=== PATIENT | female | born 1995 | race Caucasian/White ===

== ENCOUNTER 2016-11-28 09:08 | Emergency (ER) | payer OTHER ==
[~2016-11-28 09:08] MED LIST: ACET50TA PO; IBUP80TA PO; NORCOTAB PO; PRENTAB7 PO
[2016-11-28 09:54] LABS: CONTROL LINE UCG INT CTR LINE PRESENT
[2016-11-28] MEDS ORDERED: PHENAZOPYRIDINE 100 MG TAB As Ordered ONE (10:09)
[2016-11-28] MEDS ORDERED: CIPROFLOXACIN 500 MG TAB As Ordered ONE (10:09)
--- NOTE | 2016-11-28 10:15 | EDDOCDS ---
Nurse's Notes [facility] Name: Marjan Hassan Age: 21 yrs Sex: Female : 1995 Arrival Date: 11/28/2016 Time: 09:08 Bed Triage 1 Private MD: Unknown, Family Dr Diagnosis: Urinary tract infection, site not specified Presentation: 11/28 09:18 Presenting complaint: Patient states: states that her emergency today is a UTI x 1 day. ml6 Adult Sepsis Screening: The patient does not have new or worsening altered mentation. Patient's respiratory rate is less than 22. Systolic blood pressure is greater than 100. Patient has a qSOFA score of 0- Negative Sepsis Screen. Suicide/Homicide risk assessment- the patient denies having any suicidal and/or homicidal ideations and does not present with any other emotional, behavioral or mental health complaints. Status: The patient is a dependent. Transition of care: patient was not received from another setting of care. 09:18 Acuity: MARCIE Level 4 ml6 09:18 Method Of Arrival: Walkin/Carried/Asstd ml6 Triage Assessment: 09:20 General: Appears in no apparent distress, Behavior is appropriate for age, cooperative. ml6 Pain: Denies pain. HIV screening NA for this visit Offered previously. Neurological: No deficits noted. Cardiovascular: No deficits noted. : Reports burning with urination since yesterday. 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 none - PMHx: none; - PSHx: facial reconstruction; ; Colonoscopy; - Social history: Smoking status: Patient states was never smoker of tobacco. No barriers to communication noted, Speaks appropriately for age. - : The pt / caregiver states he / she is not on anticoagulants. Home medication list is obtained from the patient. - Exposure Risk Screening:: None identified. Vital Signs: 09:10 BP 151 / 78; Pulse 78; Resp 18 S; Temp 97.5(O); Pulse Ox 97% on R/A; Weight 84.82 kg dd6 (R); Height 5 ft. 4 in. (162.56 cm) (R); 09:10 Body Mass Index 32.10 (84.82 kg, 162.56 cm) dd6 Vitals: 09:10 Log In Time: November 28, 2016 at 09:08. dd6 ED Course: 09:10 Patient visited by Maurice Collado PCA. dd6 09:10 Unknown, Family is Private Physician. dd6 09:10 Patient moved to Waiting dd6 09:11 Patient moved to Pre RCE dd6 09:19 Triage Initiated ml6 09:30 Estrada Steve PA is PHCP. mo1 09:30 Jose Antonio Carrillo MD is Attending Physician. mo1 09:30 Patient moved to Triage 1 kcs 09:35 Patient visited by Estrada Steve PA. mo1 09:36 Urine Culture Sent. kcs 09:36 UA Sent. kcs 10:06 Patient moved to PR / 25 kcs 10:06 Patient moved to Triage 1 kcs Administered Medications: 10:13 Drug: Ciprofloxacin 500 mg [ciprofloxacin 500 mg tablet (1 tabs)] Route: PO; kcs 10:13 Drug: Phenazopyridine 200 mg [phenazopyridine 100 mg tablet (2 tabs)] Route: PO; kcs Order Results: Lab Order: UA; SPEC'M 11/28/16 09:32 Test: APPEARANCE, URINE; Value: HAZY; Range: CLEAR; Status: F Test: COLOR, URINE; Value: YELLOW; Range: YELLOW; Status: F Test: PH,URINE; Value: 5.0; Range: 5.0-9.0; Units: UNITS; Status: F Test: SPECIFIC GRAVITY URINE AUTO; Value: 1.016; Range: 1.002-1.035; Status: F Test: PROTEIN, URINE AUTO; Value: NEGATIVE; Range: NEGATIVE; Units: mg/dL; Status: F Test: GLUCOSE, URINE (UA) AUTO; Value: NEGATIVE; Range: NEGATIVE; Units: mg/dL; Status: F Test: KETONE, URINE AUTO; Value: TRACE; Range: NEGATIVE; Abnormal: Above high normal; Units: mg/dL; Status: F Test: UROBILINOGEN, URINE AUTO; Value: 0.2; Range: 0.0-2.0; Units: mg/dL; Status: F Test: BILIRUBIN, URINE AUTO; Value: NEGATIVE; Range: NEGATIVE; Status: F Test: NITRITE, URINE AUTO; Value: NEGATIVE; Range: NEGATIVE; Status: F Test: LEUKOCYTE ESTERASE, URINE AUTO; Value: 3+; Range: NEGATIVE; Abnormal: Above high normal; Status: F Test: BLOOD, URINE BLOOD; Value: 1+; Range: NEGATIVE; Abnormal: Above high normal; Status: F Test: WBC, URINE AUTO; Value: TNTC; Range: 0-3; Abnormal: Above high normal; Units: /HPF; Status: F Test: RBC, URINE AUTO; Value: 21; Range: 0-3; Abnormal: Above high normal; Units: /HPF; Status: F Test: BACTERIA, URINE AUTO; Value: 2+; Range: NEGATIVE; Abnormal: Above high normal; Status: F Test: SQUAMOUS EPITHELIAL CELL UR AU; Value: 0; Range: 0-6; Units: /HPF; Status: F Test: HYALINE CAST, URINE AUTO; Value: 0; Range: 0-1; Units: /LPF; Status: F Lab Order: Urine Test-In Lab; SPEC'M 11/28/16 09:32 Test: URINE PREG TEST; Value: NEGATIVE; Range: NEGATIVE; Status: F Outcome: 09:58 Discharge ordered by Provider. mo1 10:14 Patient left the ED. [facility] Signatures: Kecia Woodson, RN RN Maurice Colin, JAGRUTI TURBINE OPERATOR dd6 Arjun Boyd RN RN ml6 Estrada Steve PA PA mo1 MTDD
--- NOTE | 2016-11-28 10:15 | EDDOCDS ---
Physician Documentation [facility] Name: Marjan Hassan Age: 21 yrs Sex: Female : 1995 Arrival Date: 11/28/2016 Time: 09:08 Bed Triage 1 Private MD: Unknown, Family Dr Disposition: 11/28/16 09:58 Discharged to Home/Self Care. Impression: Urinary tract infection, site not specified. - Condition is Stable. - Discharge Instructions: Urinary Tract Infection. - Prescriptions for Cipro 500 mg Oral Tablet - take 1 tablet by ORAL route every 12 hours; 14 tablet. Pyridium 200 mg Oral Tablet - take 1 tablet by ORAL route every 8 hours for 3 days; 9 tablet. - Medication Reconciliation, Local Pharmacy Hours form. - Follow up: Private Physician; When: Call to arrange an appointment; Reason: Recheck today's complaints, Continuance of care. - Problem is new. - Symptoms are unchanged. Historical: - Allergies: Septra; - Home Meds: 1. none - PMHx: none; - PSHx: facial reconstruction; ; Colonoscopy; - Social history: Smoking status: Patient states was never smoker of tobacco. No barriers to communication noted, Speaks appropriately for age. - : The pt / caregiver states he / she is not on anticoagulants. Home medication list is obtained from the patient. - Exposure Risk Screening:: None identified. 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 4 in. (162.56 cm) (R); 09:10 Body Mass Index 32.10 (84.82 kg, 162.56 cm) dd6 MDM: 09:23 UA Ordered. EDMS 09:24 Urine Culture Ordered. EDMS 09:46 Urine Test-In Lab Ordered. EDMS 09:57 UA Reviewed. mo1 09:57 Urine Test-In Lab Reviewed. mo1 09:58 Ciprofloxacin 500 mg PO once ordered. mo1 09:58 Phenazopyridine 200 mg PO once ordered. mo1 Administered Medications: 10:13 Drug: Ciprofloxacin 500 mg [ciprofloxacin 500 mg tablet (1 tabs)] Route: PO; kcs 10:13 Drug: Phenazopyridine 200 mg [phenazopyridine 100 mg tablet (2 tabs)] Route: PO; kcs Signatures: Dispatcher [employer] Kecia Espinosa RN RN Arjun López RN RN ml6 Estrada Steve PA PA mo1 MTDD
--- NOTE | 2016-11-30 11:15 | EDDOCDS ---
Nurse's Notes [facility] Name: Marjan Hassan Age: 21 yrs Sex: Female : 1995 Arrival Date: 11/28/2016 Time: 09:08 Bed Triage 1 Private MD: Unknown, Family Dr Diagnosis: Urinary tract infection, site not specified Presentation: 11/28 09:18 Presenting complaint: Patient states: states that her emergency today is a UTI x 1 day. ml6 Adult Sepsis Screening: The patient does not have new or worsening altered mentation. Patient's respiratory rate is less than 22. Systolic blood pressure is greater than 100. Patient has a qSOFA score of 0- Negative Sepsis Screen. Suicide/Homicide risk assessment- the patient denies having any suicidal and/or homicidal ideations and does not present with any other emotional, behavioral or mental health complaints. Status: The patient is a dependent. Transition of care: patient was not received from another setting of care. 09:18 Acuity: MARCIE Level 4 ml6 09:18 Method Of Arrival: Walkin/Carried/Asstd ml6 Triage Assessment: 09:20 General: Appears in no apparent distress, Behavior is appropriate for age, cooperative. ml6 Pain: Denies pain. HIV screening NA for this visit Offered previously. Neurological: No deficits noted. Cardiovascular: No deficits noted. : Reports burning with urination since yesterday. 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 none - PMHx: none; - PSHx: facial reconstruction; ; Colonoscopy; - Social history: Smoking status: Patient states was never smoker of tobacco. No barriers to communication noted, Speaks appropriately for age. - Family history: Not pertinent. - : The pt / caregiver states he / she is not on anticoagulants. Home medication list is obtained from the patient. - Exposure Risk Screening:: None identified. Screenin:13 Screening information is obtained from prior medical records. Fall risk: No risks kcs identified. Assistance ADL's: requires no assistance with activities of daily living. Abuse/DV Screen: The patient / caregiver reports he/she is: not in a situation that causes fear, pain or injury. Nutritional screening: No deficits noted. Advance Directives: Currently, there is no health care proxy. There is no living will. home support is adequate. Assessment: 10:13 Reassessment: Patient states symptoms have not improved. General: Appears comfortable, kcs well developed, well nourished, well groomed, Behavior is cooperative, pleasant. Pain: Location: with urination. Neurological: Level of Consciousness is awake, alert. Respiratory: Airway is patent Respiratory effort is even, unlabored, Respiratory pattern is regular, symmetrical. Derm: Skin is intact, is healthy with good turgor, Skin is dry, Skin is normal. Vital Signs: 09:10 BP 151 / 78; Pulse 78; Resp 18 S; Temp 97.5(O); Pulse Ox 97% on R/A; Weight 84.82 kg dd6 (R); Height 5 ft. 4 in. (162.56 cm) (R); 09:10 Body Mass Index 32.10 (84.82 kg, 162.56 cm) dd6 Vitals: 09:10 Log In Time: November 28, 2016 at 09:08. dd6 ED Course: 09:10 Patient visited by Maurice Collado PCA. dd6 09:10 Unknown, Family Dr is Private Physician. dd6 09:10 Patient moved to Waiting dd6 09:11 Patient moved to Pre RCE dd6 09:19 Triage Initiated ml6 09:30 Estrada Steve PA is PHCP. mo1 09:30 Jose Antonio Carrillo MD is Attending Physician. mo1 09:30 Patient moved to Triage 1 kcs 09:35 Patient visited by Estrada Steve PA. mo1 09:36 Urine Culture Sent. kcs 09:36 UA Sent. kcs 10:06 Patient moved to PR1 / 25 kcs 10:06 Patient moved to Triage 1 kcs 10:13 The patient / caregiver is instructed regarding the plan of care and ED course. kcs 10:13 No IV's were initiated during this patient's visit. No procedures done that require kcs assistance. 10:24 [facility] Payment Agreement was scanned into [employer] and attached to record. mm15 14:44 T-Sheet-- Draft Copy was scanned into [employer] and attached to record. gb Administered Medications: 10:13 Drug: Ciprofloxacin 500 mg [ciprofloxacin 500 mg tablet (1 tabs)] Route: PO; kcs 10:13 Drug: Phenazopyridine 200 mg [phenazopyridine 100 mg tablet (2 tabs)] Route: PO; kcs Order Results: Lab Order: UA; SPEC'M 11/28/16 09:32 Test: APPEARANCE, URINE; Value: HAZY; Range: CLEAR; Status: F Test: COLOR, URINE; Value: YELLOW; Range: YELLOW; Status: F Test: PH,URINE; Value: 5.0; Range: 5.0-9.0; Units: UNITS; Status: F Test: SPECIFIC GRAVITY URINE AUTO; Value: 1.016; Range: 1.002-1.035; Status: F Test: PROTEIN, URINE AUTO; Value: NEGATIVE; Range: NEGATIVE; Units: mg/dL; Status: F Test: GLUCOSE, URINE (UA) AUTO; Value: NEGATIVE; Range: NEGATIVE; Units: mg/dL; Status: F Test: KETONE, URINE AUTO; Value: TRACE; Range: NEGATIVE; Abnormal: Above high normal; Units: mg/dL; Status: F Test: UROBILINOGEN, URINE AUTO; Value: 0.2; Range: 0.0-2.0; Units: mg/dL; Status: F Test: BILIRUBIN, URINE AUTO; Value: NEGATIVE; Range: NEGATIVE; Status: F Test: NITRITE, URINE AUTO; Value: NEGATIVE; Range: NEGATIVE; Status: F Test: LEUKOCYTE ESTERASE, URINE AUTO; Value: 3+; Range: NEGATIVE; Abnormal: Above high normal; Status: F Test: BLOOD, URINE BLOOD; Value: 1+; Range: NEGATIVE; Abnormal: Above high normal; Status: F Test: WBC, URINE AUTO; Value: TNTC; Range: 0-3; Abnormal: Above high normal; Units: /HPF; Status: F Test: RBC, URINE AUTO; Value: 21; Range: 0-3; Abnormal: Above high normal; Units: /HPF; Status: F Test: BACTERIA, URINE AUTO; Value: 2+; Range: NEGATIVE; Abnormal: Above high normal; Status: F Test: SQUAMOUS EPITHELIAL CELL UR AU; Value: 0; Range: 0-6; Units: /HPF; Status: F Test: HYALINE CAST, URINE AUTO; Value: 0; Range: 0-1; Units: /LPF; Status: F Lab Order: Urine Culture; SPEC'M 11/28/16 09:32 Test: URINE CULTURE; Value: <EXTERNAL COMMENT eCWMed> FULL REPORT IN LAB NOTES (eCW and Medent).; Status: F Test: URINE CULTURE; Value: URINE CULTURE RESULT NO GROWTH; Status: F Lab Order: Urine Test-In Lab; SPEC'M 11/28/16 09:32 Test: URINE PREG TEST; Value: NEGATIVE; Range: NEGATIVE; Status: F Outcome: 09:58 Discharge ordered by Provider. mo1 10:13 Discharge Assessment: Patient awake, alert and oriented x 3. No cognitive and/or kcs functional deficits noted. Patient verbalized understanding of disposition instructions. Patient awake and alert. patient administered narcotics - no. The following High Risk Discharge criteria are identified: None. Discharged to home ambulatory, with family. Condition: stable. Discharge instructions given to patient, Instructed on discharge instructions, follow up and referral plans. medication usage, increase fluid intake Demonstrated understanding of instructions, medications, Pt was receptive of discharge instructions/ teaching. No special radiology studies were completed. Property sent home with patient. 10:14 Patient left the ED. kcs Signatures: Kecia Woodson, RN RN kcs Ana Luisa Singletary, Reg Reg gb Maurice Collado, TAPPER BALANCE WHEEL SCREW HOLE TAPPER BALANCE WHEEL SCREW HOLE dd6 Arjun Boyd RN RN ml6 Estrada Steve PA PA mo1 Lala Cooper mm15 Chart Complete MTDD
--- NOTE | 2016-11-30 11:15 | EDDOCDS ---
Physician Documentation [facility] Name: Marjan Hassan Age: 21 yrs Sex: Female : 1995 Arrival Date: 11/28/2016 Time: 09:08 Bed Triage 1 Private MD: Unknown, Family Dr Disposition: 11/28/16 09:58 Discharged to Home/Self Care. Impression: Urinary tract infection, site not specified. - Condition is Stable. - Discharge Instructions: Urinary Tract Infection. - Prescriptions for Cipro 500 mg Oral Tablet - take 1 tablet by ORAL route every 12 hours; 14 tablet. Pyridium 200 mg Oral Tablet - take 1 tablet by ORAL route every 8 hours for 3 days; 9 tablet. - Medication Reconciliation, Local Pharmacy Hours form. - Follow up: Private Physician; When: Call to arrange an appointment; Reason: Recheck today's complaints, Continuance of care. - Problem is new. - Symptoms are unchanged. Historical: - Allergies: Septra; - Home Meds: 1. none - PMHx: none; - PSHx: facial reconstruction; ; Colonoscopy; - Social history: Smoking status: Patient states was never smoker of tobacco. No barriers to communication noted, Speaks appropriately for age. - Family history: Not pertinent. - : The pt / caregiver states he / she is not on anticoagulants. Home medication list is obtained from the patient. - Exposure Risk Screening:: None identified. 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 4 in. (162.56 cm) (R); 09:10 Body Mass Index 32.10 (84.82 kg, 162.56 cm) dd6 MDM: 09:23 UA Ordered. EDMS 09:24 Urine Culture Ordered. EDMS 09:46 Urine Test-In Lab Ordered. EDMS 09:57 UA Reviewed. mo1 09:57 Urine Test-In Lab Reviewed. mo1 09:58 Ciprofloxacin 500 mg PO once ordered. mo1 09:58 Phenazopyridine 200 mg PO once ordered. mo1 10:23 Financial registration complete. mm15 10:24 [facility] Payment Agreement was scanned into [employer] and attached to record. mm15 14:44 T-Sheet-- Draft Copy was scanned into [employer] and attached to record. gb Administered Medications: 10:13 Drug: Ciprofloxacin 500 mg [ciprofloxacin 500 mg tablet (1 tabs)] Route: PO; kcs 10:13 Drug: Phenazopyridine 200 mg [phenazopyridine 100 mg tablet (2 tabs)] Route: PO; kcs Signatures: Dispatcher [employer] Kecia Espinosa RN RN kcs Ana Luisa Singletary, Reg Reg gb Arjun Boyd RN RN ml6 Estrada Steve PA PA mo1 Lala Cooper mm15 The chart was reviewed and I authenticate all verbal orders and agree with the evaluation and treatment provided.Attachments: 10:24 [facility] Payment Agreement mm15 14:44 T-Sheet-- Draft Copy gb Chart Complete MTDD
--- NOTE | 2016-11-30 11:15 | EDDOCDS ---
Physician Documentation [facility] Name: Marjan Hassan Age: 21 yrs Sex: Female : 1995 Arrival Date: 11/28/2016 Time: 09:08 Bed Triage 1 Private MD: Unknown, Family Dr Disposition: 11/28/16 09:58 Discharged to Home/Self Care. Impression: Urinary tract infection, site not specified. - Condition is Stable. - Discharge Instructions: Urinary Tract Infection. - Prescriptions for Cipro 500 mg Oral Tablet - take 1 tablet by ORAL route every 12 hours; 14 tablet. Pyridium 200 mg Oral Tablet - take 1 tablet by ORAL route every 8 hours for 3 days; 9 tablet. - Medication Reconciliation, Local Pharmacy Hours form. - Follow up: Private Physician; When: Call to arrange an appointment; Reason: Recheck today's complaints, Continuance of care. - Problem is new. - Symptoms are unchanged. Historical: - Allergies: Septra; - Home Meds: 1. none - PMHx: none; - PSHx: facial reconstruction; ; Colonoscopy; - Social history: Smoking status: Patient states was never smoker of tobacco. No barriers to communication noted, Speaks appropriately for age. - Family history: Not pertinent. - : The pt / caregiver states he / she is not on anticoagulants. Home medication list is obtained from the patient. - Exposure Risk Screening:: None identified. 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 4 in. (162.56 cm) (R); 09:10 Body Mass Index 32.10 (84.82 kg, 162.56 cm) dd6 MDM: 09:23 UA Ordered. EDMS 09:24 Urine Culture Ordered. EDMS 09:46 Urine Test-In Lab Ordered. EDMS 09:57 UA Reviewed. mo1 09:57 Urine Test-In Lab Reviewed. mo1 09:58 Ciprofloxacin 500 mg PO once ordered. mo1 09:58 Phenazopyridine 200 mg PO once ordered. mo1 10:23 Financial registration complete. mm15 10:24 [facility] Payment Agreement was scanned into [employer] and attached to record. mm15 14:44 T-Sheet-- Draft Copy was scanned into [employer] and attached to record. gb Administered Medications: 10:13 Drug: Ciprofloxacin 500 mg [ciprofloxacin 500 mg tablet (1 tabs)] Route: PO; kcs 10:13 Drug: Phenazopyridine 200 mg [phenazopyridine 100 mg tablet (2 tabs)] Route: PO; kcs Signatures: Dispatcher [employer] Kecia Espinosa RN RN kcs Ana Luisa Singletary, Reg Reg gb Arjun Boyd RN RN ml6 Estrada Steve PA PA mo1 Lala Cooper mm15 The chart was reviewed and I authenticate all verbal orders and agree with the evaluation and treatment provided.Attachments: 10:24 [facility] Payment Agreement mm15 14:44 T-Sheet-- Draft Copy gb Chart Complete MTDD
== END 2016-11-28 10:14 | disposition home or self-care (01) ==
LOC: M ED 09:08
DX: N39.0 Urinary tract infection, site not specified (principal); Z88.8 Allergy status to other drugs, medicaments and biological substances